=== PATIENT | female | born 1990 | race Hispanic/Latino ===

== ENCOUNTER 2019-07-23 15:53 | Emergency (ER) | payer OTHER ==
--- OUTSIDE RECORDS SUMMARY | 2019-07-23 15:55 | XMS REPORT ---
:1990 Author Organization eClinicalWorks Care Team Providers Name Role Phone Ashlyn Cantuh Provider Role Unavailable Allergies, Adverse Reactions, Alerts Substance Reaction Event Type N.K.D.A. 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
--- OUTSIDE RECORDS SUMMARY | 2019-07-23 15:55 | XMS REPORT ---
:1990 Author Organization [facility] t Address [address] [place] [address] Care Team Providers Name Role Phone Unavailable Unavailable Unavailable Problems Condition Condition Condition Status Onset Resolution Last Treating Co mments Source Name Details Category Date Date Treatment Clinician Date Iron Iron Diagnosis Active [facility] deficiency deficiency Nya kes - Memoria l [facility] ent Clinics Daytime Daytime Problem Active [facility] somnolence somnolence [facility] - [facility] Prediabete Prediabete Diagnosis Active [facility] Repetitive Repetitive Problem Active C [facility] intrusions intrusions Nya kes - of sleep of sleep [facility] Elevated Elevated Diagnosis Active [facility] BP without BP without Nya kes - diagnosis diagnosis [facility] of of l hypertensi hypertensi Ou tpati on on ent Clinics Fatigue, Fatigue, Diagnosis Active [facility] unspecifie unspecifie Nya kes - d type d type [facility] Morbid Morbid Diagnosis Active [facility] (severe) (severe) [facility] - obesity obesity Memoria due to due to l excess excess Outpati calories calories ent Clinics Body mass Body mass Problem Active [facility] index index [facility] - (BMI) (BMI) Memoria 50.0-59.9, 50.0-59.9, l adult adult [facility] Allergies, Adverse Reactions, Alerts This patient has no known allergies or adverse reactions. Medications Ordered Filled Start Stop Current Ordering Indication Dosage Frequency Signature Comments Components Source Medication Medication Date Date Medication? Clinician (SIG) Name Name Phentermine Phentermine Yes Jeffry [address] [facility] HCl HCl Cantu [facility] Procedures This patient has no known procedures. Encounters Start End Encounter Admission Attending Care Care Encounter Source Date/Time Date/Time Type Type Clinicians Facility Department ID 2019-05-23 2019-05-23 [facility] [id number] [facility] [address] 15:15:00 15:15:00 t [facility] 2019-05-03 2019-05-03 Outpatient Al Alexander [id number] [facility] [address] 15:45:00 15:45:00 t [facility] ent Clinics Results This patient has no known results.
--- OUTSIDE RECORDS SUMMARY | 2019-07-23 15:55 | XMS REPORT ---
[...] Medications Medication Code Code Instructions Start End Date Status Dosage System Date Phentermine HCl [facility] [id number] 15 MG Orally May 03May Active Take 1 Once a day 2019 Capsule QAm x 2 weeks then 2 Caps qAM x 1 week Results No Known Results Summary Purpose eClinicalWorks Submission
--- NOTE | 2019-07-23 17:04 | RAD REPORT ---
EXAM DESCRIPTION: US - Abdomen Exam Limited - 07/23/2019 4:56 pm CLINICAL HISTORY: Abdominal pain. COMPARISON: None. FINDINGS: Multiple gallstones. Gallbladder wall mildly to moderately thickened The common bile duct measures 5.6 millimeters which is upper limits normal thickness IMPRESSION: Cholelithiasis. Gallbladder wall thickening may indicate cholecystitis
[2019-07-23 17:29] LABS: Basophils % 1.2 % (0-1.3); Hematocrit 37.2 % (36.0-45.0); MPV 7.6 fL (7.6-11.3); RBC Red Blood Cell Count 4.87 M/uL (3.86-4.86)
[2019-07-23 17:45] LABS: ALT/SGPT 37 U/L (12-78); AST/SGOT 23 U/L (15-37); Albumin 3.1 g/dL (3.4-5.0); Alkaline Phosphatase 88 U/L (45-117); BUN Blood Urea Nitrogen 9 mg/dL (7-18); Bicarbonate 25 mmol/L (21-32); Bilirubin Direct < 0.1 mg/dL (0-0.2); Bilirubin Total 0.2 mg/dL (0.2-1.0); Glucose Level 112 mg/dL (74-106); Lipase 163 U/L (73-393); Potassium 3.9 mmol/L (3.5-5.1); Protein, Total 7.8 g/dL (6.4-8.2); Sodium Level 141 mmol/L (136-145)
--- NOTE | 2019-07-23 17:58 | EDPHYS ---
Physician Documentation [facility] Name: Celia Ellis Age: 28 yrs Sex: Female : 1990 Arrival Date: 07/23/2019 Time: 15:55 Bed 3 Private MD: Jeffry Cantu ED Physician Louie Farris HPI: 07/22 16:20 This 28 yrs old Female presents to ER via Unassigned with complaints of abd kb Pain. 16:20 The patient presents with abdominal pain in the epigastric area. Onset: The kb symptoms/episode began/occurred just prior to arrival. The symptoms do not radiate. Associated signs and symptoms: Pertinent positives: nausea. The symptoms are described as sharp. Modifying factors: The symptoms are alleviated by nothing, the symptoms are aggravated by nothing. Severity of pain: At its worst the pain was severe in the emergency department the pain has resolved and did so while in waiting room. The patient has not experienced similar symptoms in the past. The patient has not recently seen a physician. Pt reports epigastric pain while unloading groceries. States it lasted 10 min and resolved when she pulled up to the ER. Reports no symptoms now. 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 - Social history:: Smoking status: Patient denies any tobacco usage or history of. ROS: 16:19 Constitutional: Negative for fever, chills, and weight loss, Cardiovascular: Negative kb for chest pain, palpitations, and edema, Respiratory: Negative for shortness of breath, cough, wheezing, and pleuritic chest pain, Back: Negative for injury and pain, : Negative for injury, bleeding, discharge, and swelling, MS/Extremity: Negative for injury and deformity, Skin: Negative for injury, rash, and discoloration, Neuro: Negative for headache, weakness, numbness, tingling, and seizure. 16:19 Abdomen/GI: Positive for abdominal pain, nausea, Negative for vomiting, diarrhea, constipation, abdominal cramps, abdominal distension, anorexia. Exam: 16:19 Constitutional: This is a well developed, well nourished patient who is awake, alert, kb and in no acute distress. Head/Face: Normocephalic, atraumatic. Chest/axilla: Normal chest wall appearance and motion. Nontender with no deformity. No lesions are appreciated. Cardiovascular: Regular rate and rhythm with a normal S1 and S2. No gallops, murmurs, or rubs. Normal PMI, no JVD. No pulse deficits. Respiratory: Lungs have equal breath sounds bilaterally, clear to auscultation and percussion. No rales, rhonchi or wheezes noted. No increased work of breathing, no retractions or nasal flaring. Back: No spinal tenderness. No costovertebral tenderness. Full range of motion. Skin: Warm, dry with normal turgor. Normal color with no rashes, no lesions, and no evidence of cellulitis. MS/ Extremity: Pulses equal, no cyanosis. Neurovascular intact. Full, normal range of motion. Neuro: Awake and alert, GCS 15, oriented to person, place, time, and situation. Cranial nerves II-XII grossly intact. Motor strength 5/5 in all extremities. Sensory grossly intact. Cerebellar exam normal. Normal gait. 16:19 Abdomen/GI: Inspection: obese Bowel sounds: normal, Palpation: soft, in all quadrants, mild abdominal tenderness, in the epigastric area. 17:59 ECG was reviewed by the Attending Physician. Vital Signs: 16:10 BP 129 / 86; Pulse 88; Resp 16 S; Temp 97.5(TE); Pulse Ox 100% on R/A; Weight 129.27 kg ca1 (R); Height 5 ft. (152.40 cm) (R); Pain 0/10; 16:35 BP 139 / 81; Pulse 89; Resp 16 S; Pulse Ox 100% on R/A; ca1 17:35 BP 134 / 85; Pulse 87; Resp 16 S; Pulse Ox 100% on R/A; ca1 18:20 BP 138 / 80; Pulse 81; Resp 16 S; Pulse Ox 100% on R/A; ca1 16:10 Body Mass Index 55.66 (129.27 kg, 152.40 cm) ca1 MDM: 16:09 Patient medically screened. 16:18 Data reviewed: vital signs, nurses notes. Data interpreted: Pulse oximetry: on room air kb is 100 %. Interpretation: normal. 17:55 Counseling: I had a detailed discussion with the patient and/or guardian regarding: the kb historical points, exam findings, and any diagnostic results supporting the discharge/admit diagnosis, lab results, radiology results, the need for outpatient follow up, a general surgeon, to return to the emergency department if symptoms worsen or persist or if there are any questions or concerns that arise at home. Physician consultation: Mansoor Ellis MD was contacted at 17:56, regarding consult, patient's condition, and will see patient in office, tomorrow. 17:56 ED course: Pt prefers to follow up with Dr Ellis tomorrow at his office than be kb admitted. 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 Pt will return for pain, fever, n/v, inability to tolerate po intake. . 07/22 16:58 Order name: Basic Metabolic Panel; Complete Time: 17:46 kb 07/22 16:58 Order name: CBC with Diff; Complete Time: 17:38 kb 07/22 16:14 Order name: US Abdomen Limited; Complete Time: 17:08 kb 07/22 16:58 Order name: Hepatic Function; Complete Time: 17:46 kb 07/22 16:58 Order name: Lipase; Complete Time: 17:46 kb 07/22 16:14 Order name: EKG; Complete Time: 16:14 kb 07/22 16:14 Order name: EKG - Nurse/Tech; Complete Time: 16:46 kb 07/22 16:58 Order name: IV Saline Lock; Complete Time: 17:14 kb 07/22 16:58 Order name: Labs collected and sent; Complete Time: 17:14 kb EC:59 Rate is 82 beats/min. Rhythm is regular. QRS [place] is Normal. MO interval is normal at kb 154 msec. QRS interval is normal at 90 msec. QT interval is normal at 370 msec. Administered Medications: 18:15 Drug: Augmentin 875 mg Route: PO; ca1 18:18 Follow up: Response: No adverse reaction ca1 Disposition: 18:26 Co-signature as Attending Physician, Louie Farris MD. rn Disposition: 07/23/19 17:57 Discharged to Home. Impression: Cholelithiasis, Cholecystitis. - Condition is Stable. - Discharge Instructions: Cholelithiasis, Rmgn-la-Bkhy, Cholecystitis, Lqop-ze-Senk. - Prescriptions for Augmentin 875- 125 mg Oral Tablet - take 1 tablet by ORAL route every 12 hours for 10 days; 20 tablet. Bentyl 20 mg Oral Tablet - take 1 tablet by ORAL route every 6 hours As needed; 20 tablet. Zofran 4 mg Oral Tablet - take 1 tablet by ORAL route every 6 hours As needed; 20 tablet. - Medication Reconciliation Form, Thank You Letter, Antibiotic Education, Prescription Opioid Use form. - Follow up: Mansoor Ellis MD; When: Tomorrow; Reason: Recheck today's complaints. Follow up: Emergency Department; When: As needed; Reason: Worsening of condition. Signatures: Dispatcher [employer] EDMS Muriel Bautista, METER SUPERVISOR-C METER SUPERVISOR-Ckb Louie Farris MD MD rn Acob, IRIS Read RN ca1 Corrections: (The following items were deleted from the chart) 16:22 16:20 This 28 yrs old Female presents to ER via Unassigned with complaints of kb Flank Pain. kb 18:21 17:57 07/23/2019 17:57 Discharged to Home. Impression: Cholelithiasis; Cholecystitis. ca1 Condition is Stable. Forms are Medication Reconciliation Form, Thank You Letter, Antibiotic Education, Prescription Opioid Use. Follow up: Mansoor Ellis; When: Tomorrow; Reason: Recheck today's complaints. Follow up: Emergency Department; When: As needed; Reason: Worsening of condition. kb
--- NOTE | 2019-07-23 17:58 | ER ---
[facility] Name: Celia Ellis Age: 28 yrs Sex: Female : 1990 Arrival Date: 07/23/2019 Time: 15:55 Bed 3 Private MD: Jeffry Cantu Diagnosis: Cholelithiasis;Cholecystitis Presentation: 07/22 16:10 Chief complaint: Patient states: Sudden sharp epigastric pain with nausea and SOB ca1 started about 15 minutes ago. It lasted about 10 minutes. Coronavirus screen: Proceed with normal triage. Patient denies a cough. Patient denies shortness of breath or difficulty breathing. Patient denies measured and/or subjective temperature greater than 100.4F prior to today's visit. Patient denies travel on a cruise ship or to a country the [facility] currently lists as an affected area. Patient denies contact with known and/or suspected case of COVID-19. Ebola Screen: Patient negative for fever greater than or equal to 101.5 degrees Fahrenheit, and additional compatible Ebola Virus Disease symptoms Patient denies exposure to infectious person. Patient denies travel to an Ebola-affected area in the 21 days before illness onset. No symptoms or risks identified at this time. Initial Sepsis Screen: Does the patient meet any 2 criteria? No. Patient's initial sepsis screen is negative. Does the patient have a suspected source of infection? No. Patient's initial sepsis screen is negative. Risk Assessment: Do you want to hurt yourself or someone else? Patient reports no desire to harm self or others. Onset of symptoms was July 23, 2019. 16:10 Method Of Arrival: Ambulatory ca1 16:10 Acuity: IDRIS 3 ca1 Triage Assessment: 16:21 General: Appears in no apparent distress. comfortable, Behavior is calm, cooperative, ca1 appropriate for age. Pain:. Pain: Denies pain. EENT: No signs and/or symptoms were reported regarding the EENT system. Neuro: Level of Consciousness is awake, alert, obeys commands, Oriented to person, place, time, situation. Cardiovascular: Heart tones S1 S2 present Capillary refill < 3 seconds Patient's skin is warm and dry. Respiratory: Airway is patent Respiratory effort is even, unlabored, Respiratory pattern is regular, symmetrical, Breath sounds are clear bilaterally. GI: Abdomen is round non-distended, obese, Bowel sounds present X 4 quads. Abd is soft and non tender X 4 quads. : No signs and/or symptoms were reported regarding the genitourinary system. Derm: Skin is intact, is healthy with good turgor, Skin is pink, warm \T\ dry. Musculoskeletal: Circulation, motion, and sensation intact. Capillary refill < 3 seconds. 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 - Social history:: Smoking status: Patient denies any tobacco usage or history of. Screenin:23 Abuse screen: Denies threats or abuse. Denies injuries from another. Nutritional ca1 screening: No deficits noted. Tuberculosis screening: No symptoms or risk factors identified. Fall Risk None identified. Assessment: 16:23 Reassessment: SEE TRIAGE NOTES. ca1 16:46 Reassessment: US at bedside. ca1 17:45 Reassessment: Patient appears in no apparent distress at this time. Patient and/or ca1 family updated on plan of care and expected duration. Pain level reassessed. Patient is alert, oriented x 3, equal unlabored respirations, skin warm/dry/pink. 18:19 Reassessment: Patient appears in no apparent distress at this time. Patient is alert, ca1 oriented x 3, equal unlabored respirations, skin warm/dry/pink. Vital Signs: 16:10 BP 129 / 86; Pulse 88; Resp 16 S; Temp 97.5(TE); Pulse Ox 100% on R/A; Weight 129.27 kg ca1 (R); Height 5 ft. (152.40 cm) (R); Pain 0/10; 16:35 BP 139 / 81; Pulse 89; Resp 16 S; Pulse Ox 100% on R/A; ca1 17:35 BP 134 / 85; Pulse 87; Resp 16 S; Pulse Ox 100% on R/A; ca1 18:20 BP 138 / 80; Pulse 81; Resp 16 S; Pulse Ox 100% on R/A; ca1 16:10 Body Mass Index 55.66 (129.27 kg, 152.40 cm) ca1 ED Course: 15:55 Patient arrived in ED. ag5 15:57 Jeffry Cantu DO is Private Physician. ag5 15:57 Muriel Bautista FNP-C [facility]. kb 15:58 Louie Farris MD is Attending Physician. kb 16:14 Roro Skinner, RN is Primary Nurse. ca1 16:21 Triage completed. ca1 16:21 Arm band placed on right wrist. ca1 16:23 Patient has correct armband on for positive identification. Bed in low position. Call ca1 light in reach. Side rails up X 1. Pulse ox on. NIBP on. Warm blanket given. 16:56 US Abdomen Limited In Process Unspecified. EDMS 17:00 Ultrasound completed. Patient tolerated well. Notified ED Physician muriel. sg3 17:14 Lipase Sent. eb 17:14 Hepatic Function Sent. eb 17:14 CBC with Diff Sent. eb 17:14 Basic Metabolic Panel Sent. eb 17:14 No provider procedures requiring assistance completed. Initial lab(s) drawn, by nh, ca1 sent to lab. Inserted saline lock: 20 gauge in right antecubital area, using aseptic technique. Blood collected. 17:57 Mansoor Ellis MD is Referral Physician. kb 18:20 IV discontinued, intact, bleeding controlled, No redness/swelling at site. Pressure ca1 dressing applied. Administered Medications: 18:15 Drug: Augmentin 875 mg Route: PO; ca1 18:18 Follow up: Response: No adverse reaction ca1 Outcome: 17:57 Discharge ordered by . kb 18:20 Discharged to home ambulatory. ca1 18:20 Condition: stable 18:20 Discharge instructions given to patient, Instructed on discharge instructions, follow up and referral plans. medication usage, Demonstrated understanding of instructions, follow-up care, medications, Prescriptions given X 3. 18:21 Patient left the ED. ca1 Signatures: Dispatcher [employer] EDND Muriel Bautista FNP-C FNP-Ckb Godinez, Sarah sg3 Calra Linares eb Roro Skinner, IRIS RN ca1 Dimas Villela ag5
[2019-07-23] MEDS ORDERED: AMOX/K CLAV 875 MG TAB ONE (18:22)
[2019-07-23 18:29] VITALS: TEMP 97.5; O2SAT 100
[2019-07-23 18:34] VITALS: BP 138/80
--- NOTE | 2019-07-25 07:03 | EKG ---
Test Date: 2019-07-23 Test Time: 16:46:51 Vamp Wetter: SERA MEASUREMENT RESULTS: Intervals: Rate: 82 ME: 154 QRSD: 90 QT: 370 QTc: 432 [place]: P: 13 ME: 154 QRS: 28 T: 28 INTERPRETIVE STATEMENTS: Normal sinus rhythm Normal ECG Compared to ECG 11/20/2015 12:00:14 No significant changes Electronically Signed On 07-25-19 07:00:35 CDT by Luis Whitley
== END 2019-07-23 18:21 | disposition home or self-care (01) ==
LOC: ER 15:53
DX: K80.10 Calculus of gallbladder with chronic cholecystitis without obstruction (principal)
CPT/HCPCS: 36415; 76705; 80048; 80076; 83690; 85025; 93005; 99284

== ENCOUNTER 2019-08-02 07:27 | Day surgery (SDC) | payer OTHER ==
--- OUTSIDE RECORDS SUMMARY | 2019-08-02 07:32 | XMS REPORT ---
[...] Status Dosage System Date Date Phentermine HCl [facility] [id number] 30 MG Orally Active 1 capsule Once a day Results No Known Results Summary Purpose eClinicalWorks Submission
--- OUTSIDE RECORDS SUMMARY | 2019-08-02 07:33 | XMS REPORT ---
:1990 Author Organization [facility] t Address [address] [place] [address] Care Team Providers Name Role Phone Unavailable Unavailable Unavailable Problems Condition Condition Condition Status Onset Resolution Last Treating Co mments Source Name Details Category Date Date Treatment Clinician Date Iron Iron Diagnosis Active [facility] deficiency deficiency Nya kes - [facility] Daytime Daytime Problem Active [facility] somnolence somnolence Nya kes - Memoria l [facility] ent Clinics Prediabete Prediabete Diagnosis Active [facility] Clinics Repetitive Repetitive Problem Active C [facility] intrusions intrusions Nya kes - of sleep of sleep Memori a l [facility] Elevated Elevated Diagnosis Active [facility] BP without BP without Nya kes - diagnosis diagnosis [facility] of of l hypertensi hypertensi Ou tpati on on ent Clinics Fatigue, Fatigue, Diagnosis Active [facility] unspecifie unspecifie Nya kes - d type d type [facility] Morbid Morbid Diagnosis Active [facility] (severe) (severe) [facility]ukes - obesity obesity Memoria due to due to l excess excess Outpati calories calories ent Clinics Body mass Body mass Problem Active [facility] index index [facility]ukes - (BMI) (BMI) Memoria 50.0-59.9, 50.0-59.9, l adult adult [facility] Allergies, Adverse Reactions, Alerts This patient has no known allergies or adverse reactions. Medications Ordered Filled Start Stop Current Ordering Indication Dosage Frequency Signature Comments Components Source Medication Medication Date Date Medication? Clinician (SIG) Name Name Phentermine Phentermine Yes Jeffry [address] [facility] [address] HCl HCl Cantu [facility] Clin[facility] Procedures This patient has no known procedures. Encounters Start End Encounter Admission Attending Care Care Encounter Source Date/Time Date/Time Type Type Clinicians Facility Department ID 2019-05-23 2019-05-23 [facility] [id number] [facility] 15:15:00 15:15:00 t [employer] [facility] 2019-05-03 2019-05-03 Outpatient Al Alexander [id number] [facility] 15:45:00 15:45:00 t [employer] [facility] ent Clinics Results This patient has no known results.
[2019-08-02] MEDS ORDERED: LIDOCAINE 2% MPF 5 ML VIAL ONE (07:48)
[2019-08-02] MEDS ORDERED: FENTANYL CITR 100 MCG/2 ML ONE ×2 (07:48→09:58)
[2019-08-02] MEDS ORDERED: MIDAZOLAM HCL 2 MG/2 ML INJ ONE (07:48)
[2019-08-02] MEDS ORDERED: propofoL 200 MG/20 ML VIAL IV ONE (07:48)
[2019-08-02] MEDS ORDERED: dexAMETHasone 10 MG/ML VIAL ONE (07:48)
[2019-08-02] MEDS ORDERED: ROCURONIUM 50 MG/5 ML VIAL IV ONE (07:49)
[2019-08-02] MEDS ORDERED: ONDANSETRON 4 MG/2 ML VIAL ONE (07:49)
[2019-08-02] MEDS ORDERED: KETOROLAC 30 MG/ML INJ ONE (07:51)
[2019-08-02] MEDS ORDERED: Ringers Lactate 1,000 ML IV ONE (08:01)
[2019-08-02 08:03] LABS: Absolute Lymphocytes (CBC) 3.2 K/uL (0.7-4.9); Basophils % 0.7 % (0-1.3); Hematocrit 40.1 % (36.0-45.0); Lymphocytes % 35.2 % (15.3-44.8); MPV 7.8 fL (7.6-11.3); RBC Red Blood Cell Count 5.25 M/uL (3.86-4.86)
[2019-08-02 08:25] LABS: Specific Gravity >= 1.030 (1.005-1.030)
[2019-08-02 08:28] LABS: ALT/SGPT 42 U/L (12-78); AST/SGOT 20 U/L (15-37); Albumin 3.3 g/dL (3.4-5.0); Alkaline Phosphatase 85 U/L (45-117); Amylase 40 U/L (25-115); BUN Blood Urea Nitrogen 13 mg/dL (7-18); Bicarbonate 28 mmol/L (21-32); Bilirubin Direct < 0.1 mg/dL (0-0.2); Bilirubin Total 0.2 mg/dL (0.2-1.0); Glucose Level 108 mg/dL (74-106); Lipase 202 U/L (73-393); Potassium 4.1 mmol/L (3.5-5.1); Protein, Total 7.9 g/dL (6.4-8.2); Sodium Level 141 mmol/L (136-145)
[2019-08-02] MEDS: CEFOXITIN/SWI 1gm 1 GM/10 ML SYR ONE ×2 (08:36→09:24)
[2019-08-02] MEDS ORDERED: GLYCOPYRROLATE 0.2 MG/ML SYR ONE ×2 (10:24)
[2019-08-02] MEDS ORDERED: NEOSTIGMINE 1 MG/ML -5 ML ONE (10:24)
--- NOTE | 2019-08-02 10:26 | P.BOP ---
Preoperative diagnosis: acute cholecystitis, RUQ abd pain, Symptomatic cholelithiasis. morbid obesi Postoperative diagnosis: same Primary procedure: Laparoscopic cholecystectomy Systems Admin: DOMINGUEZ KAPLAN (vehicle operator technician) Estimated blood loss: <10cc Specimen: gb Findings: as above Anesthesia: General Transferred to: Recovery Room Condition: Good
[2019-08-02] MEDS ORDERED: SUCCINYLCHOLINE 20 MG/ML (10 ML) IV ONE (11:09)
[2019-08-02] MEDS ORDERED: CODEINE 30MG/APAP 300MG TAB ONE (11:56)
[2019-08-02 13:09] VITALS: BP 144/78; TEMP 97.2; O2SAT 99
--- NOTE | 2019-08-02 21:14 | DS ---
Date of Discharge: 08/02/2019 Diagnoses: Acute cholecystitis, symptomatic cholelithiasis, right upper quadrant abdominal pain. Procedure: Laparoscopic cholecystectomy. Disposition: Home. Activity: As tolerated. No heavy lifting. Followup: Follow up in my office in 1 week. Call for appointment [phone]. Keep area dry for 48 ho urs, then may shower. Keep Steri-Strips intact. Medications: Tylenol No.3 q.4 hours p.r.n. pain and Zofran 4 q.6 p.r.n. nausea. ARIC/JOSE Voice ID: [id number] Report ID: [id number]
--- NOTE | 2019-08-02 21:19 | OP ---
Date of Procedure: 08/02/2019 Surgeon: Mansoor Ellis MD Leveler Helper: JOSE A Benjamin Preoperative Diagnoses: Acute cholecystitis, symptomatic cholelithiasis, right upper quadrant abdomi nal pain, morbid obesity. Postoperative Diagnoses: Acute cholecystitis, symptomatic cholelithiasis, right upper quadrant abdom inal pain, morbid obesity. Procedures: Laparoscopic cholecystectomy. Anesthesia: General plus local. Specimen: Gallbladder. Complications: None. Findings: Acute cholecystitis, symptomatic cholelithiasis. Indications: This is the case of a 28-year-old patient, comes to us with abdominal pain. She has be en in ER several times, having abdominal pain on and off, came on my office, scheduled for laparoscop ic possible open cholecystectomy. After fully explained the benefits, alternatives, and risks which include but are not limited to infection, bleeding, damage to adjacent structures, anesthesia complic ation, choledocholithiasis, bile leak, pancreatitis, [place], and even . She also understands this m ay not relieve the symptoms. She might need more than one surgical intervention. She understood, si gned a consent. Patient advised importance also of losing weight. Description Of Procedure: Patient brought to the operating room, placed in supine position. Anesthe jailyn was done without complication. Abdominal area was prepped and draped in a sterile fashion. Juan R risa 0.5% was injected for local anesthetic, followed by sharp incision of skin in the infraumbilical region. Incision was carried down to fascia, which was opened under direct vision. Peritoneum was encountered, opened under direct vision. Vicryl #1 placed inside the fascia. Seajl trocar was care fully introduced and no bleeding was obtained. I placed 3 more trocars, 5 mm each, 2 of them in the right upper quadrant under direct visualization. This allowed me to put a grasper in the fundus of t he gallbladder, another grasper in the infundibulum, retracted the gallbladder in the inferolateral f ashion exposing the triangle of Calot obtaining critical view of safety. The cystic duct and cystic artery were clearly isolated, freed circumferentially and a connection between those and the gallblad albert were clearly identified. I proceeded to ligate those by using at least 4 clips proximal and 1 cl ip distal, ligation in middle. Same was done with the cystic artery. No bile leak. No bleeding. T he gallbladder was removed from liver using Bovie cauterizer and removed from abdominal cavity using an EndoCatch through the umbilical incision. The area was inspected once again. No bile leak. No b leeding. Gallbladder fossa was intact with no bleeding. At that moment, I proceeded to remove the t rocars under direct vision. Deflated the pneumoperitoneum. Closed the fascia with #1 Vicryl. Irrig ated subcutaneous tissue, closed that with 3-0 chromic and skin in a subcuticular fashion with Steri- Strips on top. Sponge count and instrument counts were correct. The patient tolerated the procedure well. Patient was sent to recovery in stable condition. ARIC/JOSE Voice ID: [id number] Report ID: [id number]
== END 2019-08-02 12:50 | disposition home or self-care (01) ==
LOC: OR 07:27
PROVIDERS: ATTEND Surgery
PROC: 0FT44ZZ Resection of Gallbladder, Percutaneous Endoscopic Approach (ICD-10-PCS; principal; 2019-08-02 09:00)
DX: K80.12 Calculus of gallbladder with acute and chronic cholecystitis without obstruction (principal); E66.01 Morbid (severe) obesity due to excess calories; Z68.43 Body mass index [BMI] 50.0-59.9, adult; Z82.49 Family history of ischemic heart disease and other diseases of the circulatory system; Z83.3 Family history of diabetes mellitus
CPT/HCPCS: 47562; 85025; 80048; 36415; 82150; 81025; 80076; 88304; 83690; J2704; J0330; J2250; J3010 ×2; J1100; J2710; J7120; J2405